=== PATIENT | female | born 1980 | race African-American/Black ===

== ENCOUNTER 2020-01-20 21:23 | Emergency (ER) | payer MEDICAID, OTHER ==
[~2020-01-20] VITALS: Ht 172.7 cm; Wt 86.0 kg
[2020-01-20] MEDS ORDERED: HYDROCODONE/ACETAMINOPHEN 5/325MG TABLET PO ONE (22:15)
[2020-01-20] MEDS ORDERED: KETOROLAC 60MG/2ML VIAL IM ONE (22:15)
[2020-01-20 22:27] VITALS: BP 147/72
== END 2020-01-20 23:30 | disposition home or self-care (01) ==
LOC: ER 21:23
DX: M54.5 Low back pain (principal); V49.88XA Car occupant (driver) (passenger) injured in other specified transport accidents, initial encounter; Y93.89 Activity, other specified; Y92.89 Other specified places as the place of occurrence of the external cause; Y99.8 Other external cause status
CPT/HCPCS: 72100; 96372; 99283; J1885

== ENCOUNTER 2020-10-09 12:31 | Emergency (ER) | payer OTHER ==
[~2020-10-09] VITALS: Ht 170.2 cm; Wt 84.0 kg
[2020-10-09 12:58] VITALS: BP 117/95
== END 2020-10-09 13:45 | disposition left against medical advice (07) ==
LOC: ER 12:45
DX: M54.40 Lumbago with sciatica, unspecified side (principal)